=== PATIENT | female | born 1940 | race Caucasian/White ===

== ENCOUNTER 2020-10-22 15:01 | Emergency (ER) | payer MEDICARE, BC ==
[~2020-10-22] VITALS: Ht 162.6 cm; Wt 81.8 kg
[~2020-10-22 15:01] MED LIST: ATOR40TA PO; BUSP5TAB3 PO; CLOP75TA15 PO; DULO30CA38 PO; ESTR0.5T2 PO; GABA300C PO; HYDR-3972 PO; LAMO100T2 PO; LEVO75TA56 PO; METO-384 PO; PROG200C11 PO; TRIA1CAP2 PO
[2020-10-22 15:15] VITALS: BP 203/64
--- NOTE | 2020-10-22 15:37 | NUR ---
GINA Callahan at bedside for evaluation of patient.
--- NOTE | 2020-10-22 15:52 | NUR ---
MARYJANE Jane at bedside for wound irrigation.
--- NOTE | 2020-10-22 16:13 | NUR ---
GINA Callahan at bedside for laceration repair
[2020-10-22] MEDS ORDERED: AMOX-580 PO (16:33)
== END 2020-10-22 16:46 | disposition home or self-care (01) ==
LOC: ER 15:02
DX: S61.211A Laceration without foreign body of left index finger without damage to nail, initial encounter (principal); I48.91 Unspecified atrial fibrillation; J44.9 Chronic obstructive pulmonary disease, unspecified; Z88.6 Allergy status to analgesic agent; Z88.8 Allergy status to other drugs, medicaments and biological substances; Z88.1 Allergy status to other antibiotic agents; Z79.2 Long term (current) use of antibiotics; Z79.899 Other long term (current) drug therapy; W55.01XA Bitten by cat, initial encounter; Y93.89 Activity, other specified; Y92.89 Other specified places as the place of occurrence of the external cause; Y99.8 Other external cause status
CPT/HCPCS: 12001; 99282; 99283